=== PATIENT | female | born 1990 | race Caucasian/White ===

== ENCOUNTER 2021-08-11 05:37 | Inpatient (IN) ==
[2021-08-11] MEDS ORDERED: PENICILLIN G POTASSIUM 6 MU in DEXTROSE 5% 250 ML IV STA (06:03)
[2021-08-11] MEDS ORDERED: LACTATED RINGER'S 1,000 ML IV PRN (06:03)
[2021-08-11] MEDS ORDERED: OXYTOCIN 30 UNITS/500 ML BAG IV PRN ×2 (06:03→07:04)
[2021-08-11 06:46] LABS: Hematocrit (blood only) 38.2 % (37-47); Mean Corpuscular Hemoglobin 29.2 pg (25-34); Mean Corpuscular Volume 85.8 fL (80-100); Mean Platelet Volume 10.9 fL (7.4-10.4); Platelet Count 258 K/uL (130-400); RDW Coefficient of Variation 12.7 % (11.5-14.5); RDW Standard Deviation 39.3 fL (36.4-46.3); Red Blood Count 4.45 M/uL (4.2-5.4); White Blood Count 7.75 K/uL (4.8-10.8)
[2021-08-11] MEDS ORDERED: LIDOCAINE 1% LOCAL 20 ML VIAL ONE (06:47)
--- NOTE | 2021-08-11 06:59 | History & Physical Report ---
Date of Service August 11, 2021 Assessment & Plan (1) Encounter for supervision of normal in multigravida: (2) Active labor at term: Plan: admit, iv, labs. did order pcn for her gbs pos but doubtful will get infused. Admission and Anticipated Discharge Date Admission Date: August 11, 2021 History of Present Illness Chief Complaint: labor Primary Care Provider: JON Hernandez 31yo at 39 wks ega presents to L&D with above cc. She came in and was having regular ctx and was 9cm per nurse. PNC uncomplicated PNL rh pos, ri, GBS pos Allergies Allergy/AdvReac Type Severity Reaction Status Date / Time Sulfa (Sulfonamide Allergy Rash Verified 08/11/21 06:00 Antibiotics) Home Medications Medication Instructions Recorded Confirmed Type vit 168-iron 27 mg-folic 1 cap PO DAILY 07/14/20 08/11/21 History acid 800 mcg-omega3 235 mg capsule (One-A-Day -1) Patient History Medical History (Updated 08/11/21 @ 06:58 by Maura De Paz MD, FACOG) Constipation History of chicken pox Ovarian cyst Spontaneous vaginal delivery 08/02/19 38wks [facility] Surgical History S/P myringotomy with insertion of tube S/P wisdom tooth extraction Family History Grandfather (Maternal) Colorectal cancer Aunt Breast cancer Other Family history non-contributory Denies family history of Ovarian cancer Social History (Updated 05/12/21 @ 14:19 by Thania Owen) Smoking Status: Never smoker Hx Alcohol Use: No Hx Substance Use: No Preferred Language: Lithuanian Communication Ability: Effective Housekeeping Coordinator Required: No Beliefs That Will Affect Care: None marital status: marital status details: Vinayak Hamilton [phone] Current Living Situation: Spouse Current Living Situation Comment: with and daughter current occupational status: employed current occupation: [employer] Other Information That Helps Us Care for You: No Feels Safe at Home: Yes Safety Concerns: Feels Safe At This Time Assistive Devices: Glasses Review of Systems as per Subjective / HPI Physical Exam Constitutional: WD/WN, vitals as above Genitourinary: Manual OB Exam: + cervical dilation (lip per nurse) and + cervical effacement 100% OB Exam Monitor Tracing: + external FHT monitor used, + category I and + normal FHT variability Results & Data ([facility]) Vital Signs (Past 12 Hours) Vital Signs Temp Pulse Resp BP 08/11/21 06:26 97.7 F 08/11/21 06:04 20 08/11/21 06:01 65 107/61 Coding Level of Care Code None Diagnoses Encounter for supervision of normal in multigravida Z34.80 Active labor at term
--- NOTE | 2021-08-11 07:01 | Delivery Summary ---
Vaginal Delivery Summary Date of Service August 11, 2021 Vaginal Delivery Summary and 2nd Degree LAC Called to see pt with urge to push. C/C/+2 arom, clear. The patient pushed to deliver a viable female infant Apgars 8 and 9 via over 2nd degree perineal laceration. Mouth and nose bulb suctioned at perineum. Shoulders and body delivered with ease. Body cord noted. Infant was vigorous and crying at . Cord clamped at 30 seconds of life and infant to maternal abdomen where the cord was then doubly clamped and cut. Placenta delivered spontaneously and intact, three-vessel cord. Hemostasis achieved with dilute pitocin and uterine massage. Laceration repaired with 3-0 vicryl in usual fashion with 1% local lidocaine anesthesia. Cervix and sulci intact. EBL 300 cc. Mother and baby stable in recovery. [facility] Vaginal Delivery Charge Delivery Type Details: and 2nd Degree LAC
[2021-08-11] MEDS ORDERED: HYDROCORTISONE ACETATE 25 MG SUPP PR PRN (07:04)
[2021-08-11] MEDS ORDERED: IBUPROFEN 600 MG TAB PO PRN (07:04)
[2021-08-11] MEDS ORDERED: oxyCODONE/ACETAMINOPHEN 5mg/325mg TAB PO PRN (07:04)
[2021-08-11] MEDS ORDERED: BENZOCAINE 20% AER SPR 82.5 GM CAN EXT PRN (07:04)
[2021-08-11] MEDS ORDERED: DIPHTHERIA/TETANUS/PERTUSSIS 0.5 ML SYR/VIAL IM ONE (07:04)
[2021-08-11] MEDS ORDERED: ACETAMINOPHEN 325 MG TAB PO PRN (07:04)
[2021-08-11] MEDS ORDERED: bisacodyL 10 MG SUPP PR PRN (07:04)
[2021-08-11] MEDS ORDERED: OXYTOCIN 20 UNITS in LACTATED RINGER'S 1,000 ML IV SCH (07:15)
[2021-08-11] MEDS ORDERED: PENICILLIN G POTASSIUM 3 MU in DEXTROSE 5% 100 ML IV PRN (09:03)
[2021-08-11] MEDS: PRENATAL VITAMIN 1 TAB PO SCH (09:06)
[2021-08-11] MEDS: DOCUSATE SODIUM 100 MG CAP PO SCH ×2 (09:06→20:52)
[2021-08-12] MEDS: DOCUSATE SODIUM 100 MG CAP PO SCH ×2 (07:51→21:30)
[2021-08-12] MEDS: PRENATAL VITAMIN 1 TAB PO SCH (07:51)
--- NOTE | 2021-08-12 08:51 | Obstetrical Progress Note ---
Date of Service August 12, 2021 Assessment & Plan (1) Encounter for care and examination after delivery: DAy 1 s/p . Doing well. Stable for discharge Subjective Ambulation: ambulating normally Voiding: no voiding problems Passing Gas:: Yes Diet Tolerance:: regular diet Lochia:: Moderate Feeding Type:: breast feeding Results & Data ([facility]) Vital Signs (Past 12 Hours) Vital Signs Temp Pulse Resp BP Pulse Ox 08/12/21 07:55 36.5 C 56 L 14 96/61 L 98 08/12/21 04:13 36.7 C 58 L 16 96/54 L 08/11/21 23:25 36.7 C 84 18 100/62
--- NOTE | 2021-08-13 06:52 | Obstetrical Progress Note ---
Date of Service August 13, 2021 Assessment & Plan (1) Encounter for care and examination after delivery: Plan: Patient is a 31-year-old now G2, P2 female who delivered via normal spontaneous vaginal delivery, day 2. uncomplicated. -Continue routine care, discharge today, discharge instructions reviewed -O+, antibody negative, GBS positive-->unable to be treated prior to delivery, baby receiving antibiotics -Pain controlled today -Encouraged ambulation and breast-feeding -6-week follow-up with Dr. Miller Admission and Anticipated Discharge Date Admission Date: August 11, 2021 Supervising Physician Co-Signing Physician Notes Resident Physician Supervision Note: I was present with Dr. Ayala during the history and exam. I discussed the case with the resident and agree with the findings and plan as documented in the note. Any exceptions or clarifications are listed here: PP2 s/p , doing well. VSS, exam benign and wnl. Stable for d/c home today Documented By: Monika Madden MD Subjective Patient is a 31-year-old now G2, P2 female who delivered via normal spontaneous vaginal delivery, day 2. uncomplicated. Patient overall doing well today. Patient ambulating and voiding appropriately. Eating and drinking without difficulty, no nausea or vomiting. Patient is breast-feeding and having good latch with baby. Pain controlled today. Passing gas. Denies fever, chills, chest pain, shortness of breath, UTI symptoms, headache. Patient would like to go home today when able. Patient has no other complaints at this time. Review of Systems Review of Systems: All systems reviewed & are unremarkable except as noted in HPI & below Physical Exam Constitutional: WD/WN, vitals as above Eyes: + anicteric sclerae Neck: trachea midline, no thyromegaly Respiratory: normal respiratory effort, lungs clear to auscultation Cardiovascular: RRR, no murmur, no edema Gastrointestinal (Abdomen): normal bowel sounds, soft, nontender, no hepatosplenomegaly Musculoskeletal: Head/Neck/Chest: normocephalic and head atraumatic Skin: no rashes, warm and dry Neurologic: moves all extremities Psychiatric: A+Ox3, euthymic affect Genitourinary: Uterine fundus palpated at the level of the umbilicus, firm Results & Data ([facility]) Vital Signs (Past 12 Hours) Vital Signs Temp Pulse Resp BP Pulse Ox 08/12/21 23:30 36.6 C 61 16 102/63 98 08/12/21 19:55 36.6 C 72 18 105/68 99
[2021-08-13] MEDS: PRENATAL VITAMIN 1 TAB PO SCH (08:13)
[2021-08-13] MEDS: DOCUSATE SODIUM 100 MG CAP PO SCH (08:14)
== END 2021-08-13 13:10 | disposition home or self-care (01) | DRG 807 ==
LOC: OPB 05:37 → 4S1 05:41 → 4E2 09:52

== ENCOUNTER 2024-02-14 02:22 | Inpatient (IN) ==
[2024-02-14] MEDS ORDERED: ACETAMINOPHEN 325 MG TAB PO PRN ×2 (02:50→04:58)
--- NOTE | 2024-02-14 02:52 | History & Physical Report ---
Date of Service February 14, 2024 Assessment & Plan (1) Normal labor: (2) 40 weeks gestation of : Plan admit, gbs prophylaxis as can. Fetus category one. Desires unmedicated delivery. anticipate . History of Present Illness Chief Complaint: contractions Primary Care Provider: JON Hernandez Patient is a 34yowf with iup at 40 3/7 who presents with painful contractions, no lof/vb. and Delivery Plans AMA Weekly NST's @ 36 weeks Scheduled for IOL for post dates 02/16/[address] Carter. GBS in Urine *treat in labor Circumvallate Placenta *q 4wk growth us OB Labs: Blood Type O Positive 07/07/23 Antibody Screen NEGATIVE 07/07/23 Hgb 11.5 g/dl (12.0-16.0) L 11/23/23 Hct 35.4 % (37.0-47.0) L 11/23/23 MCV 83.2 fL (80.0-100.0) 07/07/23 Plt Count 273 K/uL (130-400) 07/07/23 Rubella IgG Antibody Immune (Immune) 07/07/23 RPR Nonreactive (Nonreactive) 07/07/23 Treponema pallidum Ab Negative (Negative) 11/23/23 Hep Bs Antigen NON-REACTIVE (NON-REACTIVE) 07/07/23 Hepatitis C Ab (EIA) NON-REACTIVE (NON-REACTIVE) 07/07/23 HIV (1&2) Ag & Ab Conf NON-REACTIVE (NON-REACTIVE) 07/07/23 Glucose 1 Hr 50 gm 76 mg/dl (70-130) 11/23/23 Maternal Serum AFP 28.1 ng/mL 09/08/23 OB Optional Labs: Chlamydia trachomatis RNA Not Detected (NotDetected) 07/07/23 Neisseria gonorrhoeae RNA Not Detected (NotDetected) 07/07/23 Alpha Fetoprotein Triple Screen SEE NOTE 09/08/23 Labs Reviewed: neg afp--[facility] low risk panorama--[facility] Allergies Allergy/AdvReac Type Severity Reaction Status Date / Time Sulfa (Sulfonamide Allergy Rash Verified 02/12/24 15:56 Antibiotics) Home Medications Medication Instructions Recorded Confirmed Type vit 168-iron 27 mg-folic 1 cap PO DAILY 07/14/20 02/12/24 History acid 800 mcg-omega3 235 mg capsule (One-A-Day -1) Patient History Medical History Encounter for care and examination after delivery Spontaneous vaginal delivery 08/02/[address] [facility] History of chicken pox Ovarian cyst Constipation Surgical History S/P wisdom tooth extraction S/P myringotomy with insertion of tube Family History Grandfather (Maternal) Colorectal cancer Aunt Breast cancer Other Family history non-contributory Denies family history of Ovarian cancer Social History Smoking Status: Never smoker Do You Dip or Chew Tobacco: No; Hx Alcohol Use: No Hx Substance Use: No Preferred Language: Libyan Communication Ability: Effective Outside Plant Field Engineer Required: No Beliefs That Will Affect Care: None marital status: marital status details: Vinayak Hamilton (39) [phone] Current Living Situation: Spouse and Family Current Living Situation Comment: with , 2 children, no pets current occupational status: employed current occupation: [employer] Feels Safe at Home: Yes Assistive Devices: Glasses OB History Past Pregnancies Del. Date GA wks Lbr Lgth wt Sex Type del Anes Place Del Prov ? Comment 08/02/19 38 17 5-9 F None Other [place] No GBS + low MASSIEL-A 08/11/21 39 7lb 5oz F Local [facility] Dr. Baldev Pan Physical Exam Constitutional: WD/WN, vitals as above Gastrointestinal (Abdomen): gravid Psychiatric: A+Ox3, euthymic affect Genitourinary: cx--8cm, intact, cephalic per nursing toco--q2-4min efm--130s wtih mod variability, no decels Results & Data Vital Signs (Past 12 Hours) Vital Signs Pulse BP 02/14/24 02:49 71 110/65 Coding Level of Care Code None Diagnoses Normal labor O80; Z37.9 40 weeks gestation of Z3A.40
[2024-02-14] MEDS: PENICILLIN GK 6 MU in SODIUM CHLORIDE 0.9% 250 ML IV STA (03:12)
[2024-02-14 03:22] LABS: Hematocrit (blood only) 33.1 % (37.0-47.0); Hemoglobin 11.1 g/dl (12.0-16.0); Mean Corpuscular Hemoglobin 28.8 pg (25.0-34.0); Mean Corpuscular Hgb Conc 33.5 g/dL (32.0-36.0); Mean Platelet Volume 11.1 fL (9.4-12.4); Platelet Count 224 K/uL (130-400); RDW Coefficient of Variation 12.7 % (11.5-14.5); RDW Standard Deviation 38.8 fL (36.4-46.3); Red Blood Count 3.85 M/uL (4.20-5.40); White Blood Count 8.22 K/ul (4.8-10.8)
--- NOTE | 2024-02-14 04:18 | Labor Progress Brief Note ---
Date of Service February 14, 2024 Subjective breathing through contractions Assessment & Plan (1) Normal labor: Plan arom, fetus reassuring, anticipate . Admission and Anticipated Discharge Date Admission Date: February 14, 2024 Physical Exam Physical Exam: cx--/ arom--clear toco--q2min efm--130s with mod variability, accels present, no decels Results & Data Vital Signs (Past 12 Hours) Vital Signs Temp Pulse Resp BP 02/14/24 03:04 36.6 C 02/14/24 02:51 18 02/14/24 02:49 71 110/65 Coding Level of Care Code None Diagnoses Normal labor O80; Z37.9
[2024-02-14] MEDS: OXYTOCIN 30 UNITS/NSS 30 UNITS/500 ML BAG IV PRN (04:44)
[2024-02-14] MEDS: LIDOCAINE 1% LOCAL 20 ML VIAL INFIL PRN (04:47)
--- NOTE | 2024-02-14 04:57 | Delivery Summary ---
Vaginal Delivery Summary Date of Service February 14, 2024 Vaginal Delivery Summary and 2nd Degree LAC Pre-operative Diagnosis: at 40 weeks labor Post-operative Diagnosis: same Procedure: arom second degree laceration and repair QBL: 737cc Anesthesia: local infiltration of lidocaine to the perineum Procedure: The patient presented to labor and delivery in active labor. She got one dose of PCN for GBS. She then had arom and shortly thereafter felt the urge to push. The patient pushed for about 10 minutes to deliver a viable male infant in madi position. The rest of the infant was then delivered without difficulty. The baby was vigorous. The nose and mouth were bulb suctioned and the was placed in the maternal abdomen for drying and attention. Cord was clamped and cut at one minute of life. Cord blood and segment obtained. Placenta delivered spontaneous, intact with a three vessel cord. Cervix/sulci/rectum were intact. A second degree perineal laceration was repaired in the normal standard fashion after infiltrating with lidocaine. Hemostasis obtained with dilute pitocin and fundal massage. Apgars were 8/9. Mother and baby doing well at the end of the delivery. [facility] Vaginal Delivery Charge Delivery Type Details: and 2nd Degree LAC
[2024-02-14] MEDS ORDERED: OXYTOCIN 30 UNITS/NSS 30 UNITS/500 ML BAG IV PRN (04:58)
[2024-02-14] MEDS ORDERED: BENZOCAINE 20% SPRY 85 APPLN/85 GM CAN EXT PRN (04:58)
[2024-02-14] MEDS ORDERED: HYDROCORTISONE ACETATE 25 MG SUPP PR PRN (04:58)
[2024-02-14] MEDS ORDERED: oxyCODONE/ACETAMINOPHEN 5mg/325mg TAB PO PRN (04:58)
[2024-02-14] MEDS ORDERED: PENICILLIN GK 3 MU in DEXTROSE 5% 100 ML IV PRN (05:50)
[2024-02-14] MEDS: DOCUSATE SODIUM 100 MG CAP PO SCH (10:48)
[2024-02-14] MEDS: PRENATAL VITAMIN 1 TAB PO SCH (10:48)
[2024-02-15 05:59] LABS: Hematocrit (blood only) 29.5 % (37.0-47.0)
--- NOTE | 2024-02-15 07:23 | Obstetrical Progress Note ---
Date of Service February 15, 2024 Assessment & Plan (1) state: (2) Perineal laceration during delivery: Plan Kelly is a 34yo day 1 s/p w/ 2nd deg perineal laceration. Feeling well this AM, VSS. Continue care Encourage ambulation and Pain control as needed Hgb: 11.1 -> 10.0, asymptomatic Home today after consultation Followup with Dr. Arevalo in 6wks. Admission and Anticipated Discharge Date Admission Date: February 14, 2024 Supervising Physician Co-Signing Physician Notes Resident Physician Supervision Note: I was present with Dr. Doyle during the history and exam. I discussed the case with the resident and agree with the findings and plan as documented in the note. Any exceptions or clarifications are listed here: [None] Documented By: Kwame Turner MD, FACOG Subjective Kelly is a 34yo day 1 s/p w/ 2nd deg perineal laceration. Feeling well this AM, endorses some sleep overnight. Pain: endorses some vulvar pain and abdominal cramping with , otherwise tolerable. Ambulation: yes Gas: "not really" Voiding: urinating, no BM Lochia: decreasing Diet: tolerating well Feeds: but unsure if letting down so much, having account consultant see her today Denies headache, chest pain, SOB, n/v/d, LE pain/swelling, LE numbness/tingling. Review of Systems Review of Systems: Denies fever, body aches, chills, sweats, vision changes, significant vaginal bleeding/discharge. Physical Exam Physical Exam: General: A&Ox3, resting comfortably in bed, in no apparent distress, nontoxic in appearance Skin: warm, dry, intact HEENT: EOM intact, PERRL b/l Cardiovascular: RRR, +s1/s2, no murmurs/rubs/gallops Pulmonary: clear to auscultation b/l, no wheezes/rales/rhonchi GI/Abd: +BS, uterine fundus firm, nontender to palpation, level of umbilicus Extremities: no significant swelling or erythema of b/l LE, nontender to palpation, negative Simon's b/l; warm, no clubbing or cyanosis Neuro: no facial droop, speech intact, moves all extremities on command Results & Data Vital Signs (Past 12 Hours) Vital Signs Temp Pulse Resp BP Pulse Ox O2 Del Method 02/15/24 04:20 36.5 C 60 16 110/67 97 Room Air 02/15/24 00:15 36.6 C 68 16 107/68 97 Room Air 02/14/24 20:15 36.6 C 71 16 103/65 98 Room Air Laboratory Results 02/15/24 Range/Units 05:31 Hgb 10.0 L (12.0-16.0) g/dl Hct 29.5 L (37.0-47.0) % Resident Activity Tracking Resident Involvement: Resident Care Provided Care Provided: OB Delivery (2) Perineal laceration during delivery Perineal laceration degree: second degree Qualified Code(s): O70.1 - Second degree perineal laceration during delivery
[2024-02-15] MEDS: IBUPROFEN 600 MG TAB PO PRN (07:41)
[2024-02-15] MEDS: bisacodyL 5 MG TABEC PO SCH (20:04)
[2024-02-16] MEDS ORDERED: bisacodyL 10 MG SUPP PR PRN (04:58)
--- NOTE | 2024-02-16 06:10 | Obstetrical Progress Note ---
Date of Service February 16, 2024 Assessment & Plan (1) state: (2) Perineal laceration during delivery: Plan Kelly is a 34yo day 2 s/p w/ 2nd deg perineal laceration. Feeling well this AM, VSS. Continue care Encourage ambulation and Pain control as needed Hgb: 11.1 -> 10.0, asymptomatic Home today after consultation Followup with Dr. Arevalo in 6wks. Admission and Anticipated Discharge Date Admission Date: February 14, 2024 Supervising Physician Co-Signing Physician Notes Patient seen with resident and agree with the above findings and plan. Stable for discharge Subjective Kelly is a 34yo day 2 s/p w/ 2nd deg perineal laceration. Feeling well this AM, endorses some sleep overnight. Pain: endorses some vulvar pain and abdominal cramping with , otherwise tolerable. Ambulation: yes Gas: yes Voiding: urinating, no BM Lochia: decreasing Diet: tolerating well Feeds: improving Denies headache, chest pain, SOB, n/v/d, LE pain/swelling, LE numbness/tingling. Review of Systems Review of Systems: Denies fever, body aches, chills, sweats, vision changes, significant vaginal bleeding/discharge. Physical Exam Physical Exam: General: A&Ox3, resting comfortably in bed, in no apparent distress, nontoxic in appearance Skin: warm, dry, intact HEENT: EOM intact, PERRL b/l Cardiovascular: RRR, +s1/s2, no murmurs/rubs/gallops Pulmonary: clear to auscultation b/l, no wheezes/rales/rhonchi GI/Abd: +BS, uterine fundus firm, nontender to palpation, level of umbilicus Extremities: no significant swelling or erythema of b/l LE, nontender to palpation, negative Simon's b/l; warm, no clubbing or cyanosis Neuro: no facial droop, speech intact, moves all extremities on command Results & Data Vital Signs (Past 12 Hours) Vital Signs Temp Pulse Resp BP Pulse Ox O2 Del Method 02/15/24 23:00 36.8 C 86 18 107/69 96 Room Air 02/15/24 18:56 36.7 C 62 18 113/73 99 Room Air Resident Activity Tracking Resident Involvement: Resident Care Provided Care Provided: OB Delivery (2) Perineal laceration during delivery Perineal laceration degree: second degree Qualified Code(s): O70.1 - Second degree perineal laceration during delivery
[2024-02-16] MEDS: DIPHTHER/TETAN/PERTUS Vaccine (Tdap, Adol/Adult) 0.5mL IM ONE (07:30)
[2024-02-16 07:38] VITALS: BP 103/66; PULSE 60; RESP 16; TEMP 97.9; O2SAT 98
== END 2024-02-16 13:25 | disposition home or self-care (01) | DRG 807 ==
LOC: OPB 02:22 → 4S1 02:25 → 4E2 08:08